=== PATIENT | male | born 1965 | race Caucasian/White ===

== ENCOUNTER → 2023-04-22 12:00 | Outpatient (REF) | payer BC, SELFPAY | LOC: DHSLP 12:00 | PROVIDERS: ATTENDING PHYSICIAN Internal Medicine Critical Care Medicine; FAMILY PHYSICIAN Student in an Organized Health Care Education/Training Program | DX: G47.33 Obstructive sleep apnea (adult) (pediatric) (principal) | CPT/HCPCS: 95800 ==

== ENCOUNTER → 2023-11-10 14:00 | Outpatient (REF) | payer BC, SELFPAY | LOC: RAD 14:00 | PROVIDERS: ATTENDING PHYSICIAN Student in an Organized Health Care Education/Training Program | DX: R68.89 Other general symptoms and signs (principal) | CPT/HCPCS: 70360 ==